=== PATIENT | female | born 1955 | race Hispanic/Latino ===

== ENCOUNTER 2022-04-17 18:30 | Emergency (ER) | payer OTHER ==
--- OUTSIDE RECORDS SUMMARY | 2022-04-17 18:34 | XMS REPORT | Continuity of Care Document ---
:1955 Author Organization [facility] t Address [address] [place] [address] Care Team Providers Name Role Phone Paulie GIBBONS, [facility] Primary Care Physician [phone] Mariama Jensen Attending Clinician Unavailable Problems Condition Condition Condition Status Onset Resolution Last Treating Co mments Source Name Details Category Date Date Treatment Clinician Date [id number] Mixed Problem Common hyperlipid [facility] emia [facility] [id number] Essential Problem Comm on (primary) [facility] hypertensi - [facility] [id number] Type 2 Problem Common diabetes [facility] mellitus - [facility] with [facility] without long-term current use of insulin Allergies, Adverse Reactions, Alerts This patient has no known allergies or adverse reactions. Social History Social Habit Start Date Stop Date Quantity Comments Source History of Tobacco Use Co mmon [facility] Sex Assigned At Com mon [facility] Smoking Status Start Date Stop Date Source Never Smoker Common [facility] Medications Ordered Filled Start Stop Current Ordering Indication Dosage Frequency Signature Comments Components Source Medication Medication Date Date Medication? Clinician (SIG) Name Name TAKE 1 2021-03 No TABLET 2-27 DAILY. 00:00: 00 Cepacol Cepacol No 1{lozen Cepacol Sore Throat Sore Throat 7-28 ge_as_n Sore 5.4 MG 5.4 MG 00:00: eeded} Throat 5.4 00 MG Lisinopril Lisinopril 2-0 No 1{table QD Lisinopril 40 MG 40 MG 10-24 t} 40 MG 00:00: 00 Cepacol Cepacol 2-0 No 1{lozen Cepacol Sore Throat Sore Throat 10-24 ge_as_n Sore 5.4 MG 5.4 MG 00:00: eeded} Throat 5.4 00 MG Lisinopril Lisinopril 2-0 No 1{table QD Lisinopril 40 MG 40 MG 10-24 t} 40 MG 00:00: 00 Loratadine Loratadine 2-0 2022- No 1{table QD Loratadine 10 MG 10 MG 10-24 t} 10 MG 00:00: 00:00 00 :00 Dose 2022-0 No Unknown 5-20 00:00: 00 Dose 2022-0 No Unknown 5-17 00:00: 00 Dose 2022-0 No Unknown 5-17 00:00: 00 amlodipine 2-0 No 1mg 5 mg tablet 5-16 00:00: 00 atorvastati 2-0 No 1mg n 40 mg 5-16 tablet 00:00: 00 lisinopril 2-0 No 1mg 20 mg 5-16 tablet 00:00: 00 glipizide 5 2-0 No 1mg mg tablet 5-16 00:00: 00 Dose 2022-0 No Unknown 5-16 00:00: 00 Dose 2022-0 No Unknown 5-16 00:00: 00 Dose 2022-0 No Unknown 5-16 00:00: 00 lisinopril 2-0 No 1mg 20 mg 1-13 tablet 00:00: 00 amlodipine 2-0 No 1mg 5 mg tablet 1-13 00:00: 00 atorvastati 2-0 No 1mg n 40 mg 1-13 tablet 00:00: 00 Dose 2022-0 No Unknown 1-13 00:00: 00 glipizide 5 2-0 No 1mg mg tablet 1-13 00:00: 00 atorvastati 1-1 No 1mg n 40 mg 0-14 tablet 00:00: 00 amlodipine 1-1 No 1mg 5 mg tablet 0-14 00:00: 00 lisinopril 2020-1 No 1mg 20 mg 0-14 tablet 00:00: 00 glipizide 5 2020-1 No 1mg mg tablet 0-14 00:00: 00 metformin 2020-1 No 2mg ER 500 mg 0-14 tablet,exte 00:00: nded 00 release 24 hr lisinopril 2020-0 No 1mg 20 mg 3-09 tablet 00:00: 00 amlodipine 2020-0 No 1mg 5 mg tablet 3-09 00:00: 00 atorvastati 2020-0 No 1mg n 40 mg 3-09 tablet 00:00: 00 Dose 2020-0 No Unknown 3-09 00:00: 00 glipizide 5 2020-0 No 1mg mg tablet 3- 00:00: 00 neomycin-po 2020-0 No 4mg/mL- lymyxin-hyd 2-02 unit/mL rocort 3.5 00:00: -% mg-10,000 00 unit/mL-1 % ear drops,susp atorvastati 2019-1 No 1mg n 40 mg 0-12 tablet 00:00: 00 lisinopril 2019-1 No 1mg 20 mg 0-12 tablet 00:00: 00 amlodipine 2019-1 No 1mg 5 mg tablet 0-12 00:00: 00 glipizide 5 2019-1 No 1mg mg tablet 0-12 00:00: 00 Dose 2019-1 No Unknown 0-12 00:00: 00 Tessalon 2019-1 No 12mg Perles 100 0-12 mg capsule 00:00: 00 atorvastati 2019-1 No 1mg n 40 mg 0-05 tablet 00:00: 00 metformin 2019-1 No 2mg ER 500 mg 0-05 tablet,exte 00:00: nded 00 release 24 hr glipizide 5 2019-1 No 1mg mg tablet 0-05 00:00: 00 amlodipine 2019-0 No 1mg 5 mg tablet 7-17 00:00: 00 lisinopril 2020-0 No 1mg 20 mg 7-17 tablet 00:00: 00 Premarin 2020-0 No 5mg/gra 0.625 7-13 m mg/gram 00:00: vaginal 00 cream amlodipine 2019-0 No 1mg 5 mg tablet 4-13 00:00: 00 loratadine 2020-0 No 1mg 10 mg 4-13 tablet 00:00: 00 amlodipine 2020-0 No 1mg 5 mg tablet 3-30 00:00: 00 Tessalon 2020-0 No 12mg Perles 100 3-30 mg capsule 00:00: 00 atorvastati 2020-0 No 1mg n 40 mg 3-17 tablet 00:00: 00 lisinopril 2020-0 No 1mg 20 mg 3-17 tablet 00:00: 00 metformin 2020-0 No 2mg ER 500 mg 3-17 tablet,exte 00:00: nded 00 release 24 hr glipizide 5 2020-0 No 1mg mg tablet 3-17 00:00: 00 glipizide 5 2019-0 No 1mg mg tablet 8-23 00:00: 00 atorvastati 2019-0 No 1mg n 40 mg 8-23 tablet 00:00: 00 metformin 2019-0 No 2mg ER 500 mg 8-23 tablet,exte 00:00: nded 00 release 24 hr atorvastati 2019-0 No 1mg n 40 mg 8-07 tablet 00:00: 00 glipizide 5 2019-0 No 1mg mg tablet 8-07 00:00: 00 metformin 2019-0 No 2mg ER 500 mg 8-07 tablet,exte 00:00: nded 00 release 24 hr metformin 2019-0 No 2mg ER 500 mg 5-06 tablet,exte 00:00: nded 00 release 24 hr glipizide 5 2019-0 No 1mg mg tablet 5-06 00:00: 00 metformin 2019-0 No 2mg ER 500 mg 4-03 tablet,exte 00:00: nded 00 release 24 hr clotrimazol 2019-0 No 1% e 1 % 2-11 topical 00:00: cream 00 metformin 2019-0 No 1mg ER 500 mg 2-11 tablet,exte 00:00: nded 00 release 24 hr metformin 2019-0 No 2mg ER 500 mg 2-11 tablet,exte 00:00: nded 00 release 24 hr fluconazole 2019-0 No 1mg 150 mg 2-11 tablet 00:00: 00 Keflex 500 2019-0 No 1mg mg capsule 2-11 00:00: 00 Gabapentin Gabapentin No 1{capsu QD Gabapentin 300 MG 300 MG le} 300 MG Atorvastati Atorvastati No 1{table QD Atorvastat n Calcium n Calcium t} in Calcium 40 MG 40 MG 40 MG amLODIPine amLODIPine No 1{table QD amLODIPine Besylate 5 Besylate 5 t} Besylate 5 MG MG MG glipiZIDE 5 glipiZIDE 5 No BID glipiZIDE MG MG 5 MG Metformin Metformin No 1{table BID Metformin HCl 1000 MG HCl 1000 MG t_with_ HCl 1000 meals} MG Gabapentin Gabapentin No 1{capsu QD Gabapentin 300 MG 300 MG le} 300 MG Metformin Metformin No 1{table BID Metformin HCl 1000 MG HCl 1000 MG t_with_ HCl 1000 meals} MG amLODIPine amLODIPine No 1{table QD amLODIPine Besylate 5 Besylate 5 t} Besylate 5 MG MG MG glipiZIDE 5 glipiZIDE 5 No BID glipiZIDE MG MG 5 MG Atorvastati Atorvastati No 1{table QD Atorvastat n Calcium n Calcium t} in Calcium 40 MG 40 MG 40 MG Immunizations Ordered Immunization Filled Immunization Date Status Commen ts Source Name Name Influenza, seasonal, 2020-01-09 Completed inj 00:00:00 pneumococcal 2020-01-09 Completed polysacchar 00:00:00 SHINGRIX VACCINE 2020-01-09 Completed 00:00:00 SHINGRIX VACCINE 2019-06-14 Completed 00:00:00 Influenza, seasonal, 2018-05-10 Completed inj 00:00:00 Vital Signs Vital Name Observation Time Observation Value Comments Source height 2021-10-24 10:40:00 65 [in_i] [facility] weight 2021-10-24 10:40:00 159 [lb_av] [facility] temperature 2021-10-24 10:40:00 97.9 [degF] [facility] bmi 2021-10-24 10:40:00 26.46 kg/m2 [facility] oximetry 2021-10-24 10:40:00 96 % [facility] respiratory rate 2021-10-24 10:40:00 17 /min Comm on [facility] blood pressure 2021-10-24 10:40:00 142 mm[Hg] [facility] - systolic [facility] blood pressure 2021-10-24 10:40:00 80 mm[Hg] [facility] - diastolic [facility] BP Systolic 2022-03-25 17:39:00 153 mm[Hg] BP Diastolic 2022-03-25 17:39:00 95 mm[Hg] Weight Measured 2022-03-25 17:39:00 158.40 pounds Height Measured 2022-03-25 17:39:00 65.00 inches Body Temperature 2022-03-25 17:39:00 98.00 degrees Heart Rate 2022-03-25 17:39:00 79.00 /min Respiratory Rate 2022-03-25 17:39:00 18.00 /min BP Systolic 2021-08-12 16:52:00 154 mm[Hg] BP Diastolic 2021-08-12 16:52:00 92 mm[Hg] Weight Measured 2021-08-12 16:52:00 156.40 pounds Height Measured 2021-08-12 16:52:00 65.00 inches Body Temperature 2021-08-12 16:52:00 97.90 degrees Heart Rate 2021-08-12 16:52:00 60.00 /min Respiratory Rate 2021-08-12 16:52:00 18.00 /min BP Systolic 2021-04-11 16:55:00 125 mm[Hg] BP Diastolic 2021-04-11 16:55:00 80 mm[Hg] Weight Measured 2021-04-11 16:55:00 158.20 pounds Height Measured 2021-04-11 16:55:00 65.00 inches Body Temperature 2021-04-11 16:55:00 98.60 degrees Heart Rate 2021-04-11 16:55:00 67.00 /min Respiratory Rate 2021-04-11 16:55:00 16.00 /min BP Systolic 2021-02-05 17:45:00 130 mm[Hg] BP Diastolic 2021-02-05 17:45:00 86 mm[Hg] Weight Measured 2021-02-05 17:45:00 157.60 pounds Height Measured 2021-02-05 17:45:00 65.00 inches Body Temperature 2021-02-05 17:45:00 98.00 degrees Heart Rate 2021-02-05 17:45:00 60.00 /min Respiratory Rate 2021-02-05 17:45:00 BP Systolic 2021-01-10 09:29:00 144 mm[Hg] BP Diastolic 2021-01-10 09:29:00 88 mm[Hg] Weight Measured 2021-01-10 09:29:00 158.80 pounds Height Measured 2021-01-10 09:29:00 65.00 inches Body Temperature 2021-01-10 09:29:00 98.20 degrees Heart Rate 2021-01-10 09:29:00 65.00 /min Respiratory Rate 2021-01-10 09:29:00 BP Systolic 2020-01-30 14:37:00 118 mm[Hg] BP Diastolic 2020-01-30 14:37:00 73 mm[Hg] Weight Measured 2020-01-30 14:37:00 149.80 pounds Height Measured 2020-01-30 14:37:00 65.00 inches Body Temperature 2020-01-30 14:37:00 98.50 degrees Heart Rate 2020-01-30 14:37:00 61.00 /min Respiratory Rate 2020-01-30 14:37:00 16.00 /min BP Systolic 2020-01-09 11:16:00 131 mm[Hg] BP Diastolic 2020-01-09 11:16:00 86 mm[Hg] Weight Measured 2020-01-09 11:16:00 153.20 pounds Height Measured 2020-01-09 11:16:00 65.00 inches Body Temperature 2020-01-09 11:16:00 98.90 degrees Heart Rate 2020-01-09 11:16:00 65.00 /min Respiratory Rate 2020-01-09 11:16:00 17.00 /min BP Systolic 2019-12-26 17:45:00 142 mm[Hg] BP Diastolic 2019-12-26 17:45:00 82 mm[Hg] Weight Measured 2019-12-26 17:45:00 159.00 pounds Height Measured 2019-12-26 17:45:00 65.00 inches Body Temperature 2019-12-26 17:45:00 97.10 degrees Heart Rate 2019-12-26 17:45:00 64.00 /min Respiratory Rate 2019-12-26 17:45:00 16.00 /min BP Systolic 2019-10-10 15:48:00 140 mm[Hg] BP Diastolic 2019-10-10 15:48:00 85 mm[Hg] Weight Measured 2019-10-10 15:48:00 160.00 pounds Height Measured 2019-10-10 15:48:00 65.00 inches Body Temperature 2019-10-10 15:48:00 98.70 degrees Heart Rate 2019-10-10 15:48:00 69.00 /min Respiratory Rate 2019-10-10 15:48:00 16.00 /min BP Systolic 2019-07-11 16:25:00 131 mm[Hg] BP Diastolic 2019-07-11 16:25:00 81 mm[Hg] Weight Measured 2019-07-11 16:25:00 165.20 pounds Height Measured 2019-07-11 16:25:00 65.00 inches Body Temperature 2019-07-11 16:25:00 97.80 degrees Heart Rate 2019-07-11 16:25:00 63.00 /min Respiratory Rate 2019-07-11 16:25:00 16.00 /min Procedures This patient has no known procedures. Plan of Care Planned Activity Planned Date Details Comments Source Goal Plan of Care Note [code = 20130-0] Goal Plan of Care Note [code = 14359-8] Goal Plan of Care Note [code = 52399-9] Goal Plan of Care Note [code = 51994-8] Goal Plan of Care Note [code = 53435-2] Goal Plan of Care Note [code = 30027-5] Goal Plan of Care Note [code = 08521-7] Goal Plan of Care Note [code = 51267-6] Goal Plan of Care Note [code = 68918-7] Goal Plan of Care Note [code = 88705-7] Goal Plan of Care Note [code = 58419-7] Goal Plan of Care Note [code = 38823-2] Goal Plan of Care Note [code = 53698-4] Goal Plan of Care Note [code = 24886-5] Goal Plan of Care Note [code = 34330-6] Goal Plan of Care Note [code = 39366-6] Encounters Start End Encounter Admission Attending Care Care Encounter Source Date/Time Date/Time Type Type Clinicians Facility Department ID 2021-11-20 Outpatient Jensen, STLBLC STLMLC [id number] Common 09:43:01 Mariama [facility] 2021-10-22 Outpatient Jensen, STLBLC STLMLC [id number] Common 08:59:03 Mariama [facility] 2021 Outpatient Jensen, STLBLC STLMLC [id number] Common 14:59:02 Mariama [facility] 2021-10-03 Outpatient Jensen, STLBLC STLMLC [id number] Common 11:41:02 Mariama [facility] 2021-08-06 Outpatient Jensen, STLBLC STLMLC [id number] Common 14:02:02 Mariama [facility] 2021-08-01 Outpatient Jensen, STLBLC STLMLC [id number] Common 14:46:01 Mariama [facility] 2022-04-07 2022-04-07 (TEL) STLMLC STLMLC [id number] Co mmon 00:00:00 00:00:00 [facility] 2022-03-27 2022-03-27 Outpatient SFA SFA [id number] Iggy 08:35:05 08:35:05 1229 F Matthew 2022-03-25 2022-03-25 Outpatient SFA SFA [id number] Iggy 17:11:56 17:11:56 1227 Vasyl Castro 2022-03-25 2022-03-25 Outpatient [id number] [id number] 00:00:00 00:00:00 Visit [id number] 2021-10-24 2021-10-24 OFFICE STLMLC STLMLC [id number] Co mmon 00:00:00 00:00:00 VISIT [facility] PT LEVEL 4 [facility] Results Test Description Test Time Test Comments Results Result Comments Source COMPREHENSIVE METABOLIC PANEL 2022-03-28 05:35:19 Test Item Value Reference Range Interpretation Comme nts GLUCOSE (test code = 2216) 221 MG/DL 70-99 H BUN (test code = 2207) 15 MG/DL 8-23 CREATININE (test code = 0.73 MG/DL 0.60-1.30 2213) eGFR (2020 CKD-EPI) (test 91 ML/MIN/1.73 >60 code = 75840) CALC BUN/CREAT (test code = 21 RATIO 6-28 2234) SODIUM (test code = 2230) 140 MEQ/L 133-146 POTASSIUM (test code = 2227) 4.1 MEQ/L 3.5-5.4 CHLORIDE (test code = 2214) 103 MEQ/L 95-107 CARBON DIOXIDE (test code = 26 MEQ/L -2205) CALCIUM (test code = 2208) 9.1 MG/DL 8.5-10.5 PROTEIN, TOTAL (test code = 6.8 G/DL 6.1-8.3 2228) ALBUMIN (test code = 2200) 4.3 G/DL 3.5-5.2 CALC GLOBULIN (test code = 2.5 G/DL 1.9-3.7 2239) CALC A/G RATIO (test code = 1.7 RATIO 1.0-2.6 2233) BILIRUBIN, TOTAL (test code 0.5 MG/DL See_Comment [Automated message] The = 2206) system which ge nerated this result transmit gloria reference range: <=1.2. T he reference range was not u sed to interpret this result as normal/abnormal . ALKALINE PHOSPHATASE (test 157 U/L 40-140 H code = 2204) AST (test code = 2217) 18 U/L 9-40 ALT (test code = 9) 20 U/L 5-40 ALBUMIN/CREATININE RATIO, URINE, [id number] 05:30:24 Test Item Value Reference Range Interpretation Comments CREATININE, URINE, 83.5 MG/DL NOT ESTAB CONC. (test code = 2072) ALBUMIN, URINE, 1.1 MG/DL NOT ESTAB RANDOM (test code = 69524) CALC 13 MG/G <30 Note: Albumin/ Creatinine ALBUMIN/CREAT, RND ratio ref erence interval (test code = [place] [address]) guidelines. UNL ESS OTHERWISE INDIC ATED, ALL TESTING PERFORM ED [facility], [facility]. [address] [place] [address] LABORATORY DIRE CTOR: Kyaw OBREGON. TASHAIA NUMBER [id number] CAP ACCREDITATION N O. [id number] HEMOGLOBIN [id number] 03:43:06 Test Item Value Reference Range Interpretation Comments HEMOGLOBIN A1c (test 8.6 % 4.2-5.6 H AMERIC AN DIABETES code = 27851) ASSOCIATION IDELINES FOR HGB A1C: PREDIABETES/INC REASED RISK . . . . . . . 5.7 -6.4% DIAGNOSIS OF DI ABETES . . . . . . . . . >=6 .5% WITH CONFIRMATION OR APPROPRIATE SYMPTOMS NOTE: ASSAY MAY BE AFFECTED BY HEMOGLOBINOPATH IES (SICKLE CELL ANEMIA, S- C DISEASE, OTHERS) OR GENEVIEVE FICIALLY LOWERED BY DECR EASED RED CELL SURVIVAL ( HEMOLYTIC ANEMIAS, BLOOD LOSS, ETC.). CONSIDER ALTERN ATE TESTING OR LABORATORY C ONSULTATION. COMPREHENSIVE METABOLIC [id number] 00:00:00 Test Item Value Reference Range Interpretation Comments GLUCOSE (test code = 2217) 221 MG/DL BUN (test code = 2208) 15 MG/DL CREATININE (test code = 2214) 0.73 MG/DL eGFR (2020 CKD-EPI) (test code 91 ML/MIN/1.73 = 59830) CALC BUN/CREAT (test code = 21 RATIO 2235) SODIUM (test code = 2231) 140 MEQ/L POTASSIUM (test code = 2228) 4.1 MEQ/L CHLORIDE (test code = 2215) 103 MEQ/L CARBON DIOXIDE (test code = 26 MEQ/L 2205) CALCIUM (test code = 2209) 9.1 MG/DL PROTEIN, TOTAL (test code = 6.8 G/DL 2228) ALBUMIN (test code = 2201) 4.3 G/DL CALC GLOBULIN (test code = 2.5 G/DL 0) CALC A/G RATIO (test code = 1.7 RATIO 2234) BILIRUBIN, TOTAL (test code = 0.5 MG/DL 2206) ALKALINE PHOSPHATASE (test 157 U/L code = 2204) AST (test code = 2218) 18 U/L ALT (test code = 2219) 20 U/L ALBUMIN/CREATININE RATIO, RANDOM [id number] 00:00:00 Test Item Value Reference Range Interpretation Comments CREATININE, URINE, CONC. (test 83.5 MG/DL code = 2072) ALBUMIN, URINE, RANDOM (test code 1.1 MG/DL = 87701) CALC ALBUMIN/CREAT, RND (test code 13 MG/G = 05512) ALBUMIN/CREATININE RATIO, RANDOM [id number] 00:00:00 Test Item Value Reference Range Interpretation Comments CREATININE, URINE, CONC. (test 83.5 MG/DL code = 2072) ALBUMIN, URINE, RANDOM (test code 1.1 MG/DL = 55308) CALC ALBUMIN/CREAT, RND (test code 13 MG/G = 00278) HEMOGLOBIN [id number] 00:00:00 Test Item Value Reference Range Interpretation Comments HEMOGLOBIN A1c (test code = 75135) 8.6 % HEMOGLOBIN [id number] 00:00:00 Test Item Value Reference Range Interpretation Comments HEMOGLOBIN A1c (test code = 97610) 8.6 % HEMOGLOBIN [id number] 00:00:00 Test Item Value Reference Range Interpretation Comments HEMOGLOBIN A1c (test code = 39847) 8.6 % COMPREHENSIVE METABOLIC [id number] 00:00:00 Test Item Value Reference Range Interpretation Comments GLUCOSE (test code = 2217) 221 MG/DL BUN (test code = 2208) 15 MG/DL CREATININE (test code = 2214) 0.73 MG/DL eGFR (2020 CKD-EPI) (test code 91 ML/MIN/1.73 = 82873) CALC BUN/CREAT (test code = 21 RATIO 2235) SODIUM (test code = 2231) 140 MEQ/L POTASSIUM (test code = 2228) 4.1 MEQ/L CHLORIDE (test code = 2215) 103 MEQ/L CARBON DIOXIDE (test code = 26 MEQ/L 2205) CALCIUM (test code = 2209) 9.1 MG/DL PROTEIN, TOTAL (test code = 6.8 G/DL 2228) ALBUMIN (test code = 220) 4.3 G/DL CALC GLOBULIN (test code = 2.5 G/DL 2239) CALC A/G RATIO (test code = 1.7 RATIO 2234) BILIRUBIN, TOTAL (test code = 0.5 MG/DL 2206) ALKALINE PHOSPHATASE (test 157 U/L code = 2204) AST (test code = 2218) 18 U/L ALT (test code = 2219) 20 U/L LIPID [id number] 06:59:39 Test Item Value Reference Range Interpretation Comments CHOLESTEROL (test 145 MG/DL <200 code = 2210) TRIGLYCERIDES (test 236 MG/DL <150 H code = 2232) HDL CHOLESTEROL (test 40 MG/DL >39 code = 2220) CALC LDL CHOL (test 72 MG/DL <100 NOTE: C ALCULATED LDL code = 2237) IS BASED ON AMAIRANI-PELAYO METHOD WHICHINCLUDES ADJUSTABLE TRIGLYCERIDE:VL DL CHOLESTEROL RAT IO.THIS FACTOR VARIES B Y MEASURED TRIGLY CERIDE AND NON-HDLCHOL ESTEROL CONCENTRATIONS WITH INCREASED CALCU LATED LDL SEENIN HIGH ER TRIGLYCERIDE OR LOWER NON-HDL SPECIME NS. FOR MOREINFORMATION , SEE CLIENT ANNOUNCE MENT AT [email or web address] RISK RATIO LDL/HDL 1.80 RATIO <3.22 (test code = 2238) COMPREHENSIVE METABOLIC [id number] 06:59:39 Test Item Value Reference Range Interpretation Comments GLUCOSE (test code = 195 MG/DL 70-99 H 2216) BUN (test code = 13 MG/DL 8-23 2207) CREATININE (test 0.77 MG/DL 0.60-1.30 code = 2214) eGFR (2020 CKD-EPI) 86 >60 (test code = 02854) ML/MIN/1.73 CALC BUN/CREAT (test 17 RATIO 6-28 code = 2235) SODIUM (test code = 142 MEQ/L 458-956 0342) POTASSIUM (test code 4.0 MEQ/L 3.5-5.4 = 2227) CHLORIDE (test code 103 MEQ/L 95-107 = 2214) CARBON DIOXIDE (test 27 MEQ/L 19-31 code = 220) CALCIUM (test code = 9.7 MG/DL 8.5-10.5 2208) PROTEIN, TOTAL (test 7.6 G/DL 6.1-8.3 code = 222) ALBUMIN (test code = 4.9 G/DL 3.5-5.2 2200) CALC GLOBULIN (test 2.7 G/DL 1.9-3.7 code = 2240) CALC A/G RATIO (test 1.8 RATIO 1.0-2.6 code = 2234) BILIRUBIN, TOTAL 0.5 MG/DL See_Comment [Automated message] (test code = 2207) The syste m which generated this result transmitted ref erence range: <=1.2. T he reference range was not used to int erpret this result as normal/abnormal . ALKALINE PHOSPHATASE 140 U/L 40-140 (test code = 2203) AST (test code = 18 U/L 9-40 2217) ALT (test code = 14 U/L 5-40 UNLESS OTH ERWISE 2218) INDICATED, ALL TESTING PERFORM ED [facility], [id number] [place] [address] DIRECTOR: RODNEY JONES M.D. CLIA NUMBER [id number] CAP ACCREDITATION N O. [id number] HEMOGLOBIN [id number] 03:50:56 Test Item Value Reference Range Interpretation Comments HEMOGLOBIN A1c (test 6.9 % 4.2-5.6 H AMERIC AN DIABETES code = 65083) ASSOCIATION IDELINES FOR HGB A1C: PREDIABETES/INC REASED RISK . . . . . . . 5.7 -6.4% DIAGNOSIS OF DI ABETES . . . . . . . . . >=6 .5% WITH CONFIRMATION OR APPROPRIATE SYMPTOMS NOTE: ASSAY MAY BE AFFECTED BY HEMOGLOBINOPATH IES (SICKLE CELL ANEMIA, S- C DISEASE, OTHERS) OR GENEVIEVE FICIALLY LOWERED BY DECR EASED RED CELL SURVIVAL ( HEMOLYTIC ANEMIAS, BLOOD LOSS, ETC.). CONSIDER ALTERN ATE TESTING OR LABORATORY C ONSULTATION. LIPID [id number] 00:00:00 Test Item Value Reference Range Interpretation Comments CHOLESTEROL (test code = 2210) 145 MG/DL TRIGLYCERIDES (test code = 2232) 236 MG/DL HDL CHOLESTEROL (test code = 2220) 40 MG/DL CALC LDL CHOL (test code = 2237) 72 MG/DL RISK RATIO LDL/HDL (test code = 1.80 RATIO 8) COMPREHENSIVE METABOLIC [id number] 00:00:00 Test Item Value Reference Range Interpretation Comments GLUCOSE (test code = 2217) 195 MG/DL BUN (test code = 2208) 13 MG/DL CREATININE (test code = 2214) 0.77 MG/DL eGFR (2020 CKD-EPI) (test code 86 ML/MIN/1.73 = 44237) CALC BUN/CREAT (test code = 17 RATIO 2235) SODIUM (test code = 2231) 142 MEQ/L POTASSIUM (test code = 2228) 4.0 MEQ/L CHLORIDE (test code = 2215) 103 MEQ/L CARBON DIOXIDE (test code = 27 MEQ/L 2206) CALCIUM (test code = 2209) 9.7 MG/DL PROTEIN, TOTAL (test code = 7.6 G/DL 2228) ALBUMIN (test code = 2201) 4.9 G/DL CALC GLOBULIN (test code = 2.7 G/DL 2240) CALC A/G RATIO (test code = 1.8 RATIO 2234) BILIRUBIN, TOTAL (test code = 0.5 MG/DL 2206) ALKALINE PHOSPHATASE (test 140 U/L code = 2204) AST (test code = 2218) 18 U/L ALT (test code = 2219) 14 U/L COMPREHENSIVE METABOLIC [id number] 00:00:00 Test Item Value Reference Range Interpretation Comments GLUCOSE (test code = 2217) 195 MG/DL BUN (test code = 2208) 13 MG/DL CREATININE (test code = 2214) 0.77 MG/DL eGFR (2020 CKD-EPI) (test code 86 ML/MIN/1.73 = 12278) CALC BUN/CREAT (test code = 17 RATIO 2235) SODIUM (test code = 2231) 142 MEQ/L POTASSIUM (test code = 2228) 4.0 MEQ/L CHLORIDE (test code = 2215) 103 MEQ/L CARBON DIOXIDE (test code = 27 MEQ/L 2206) CALCIUM (test code = 2209) 9.7 MG/DL PROTEIN, TOTAL (test code = 7.6 G/DL 2228) ALBUMIN (test code = 2201) 4.9 G/DL CALC GLOBULIN (test code = 2.7 G/DL 2240) CALC A/G RATIO (test code = 1.8 RATIO 2234) BILIRUBIN, TOTAL (test code = 0.5 MG/DL 2206) ALKALINE PHOSPHATASE (test 140 U/L code = 2204) AST (test code = 2218) 18 U/L ALT (test code = 2219) 14 U/L HEMOGLOBIN [id number] 00:00:00 Test Item Value Reference Range Interpretation Comments HEMOGLOBIN A1c (test code = 22269) 6.9 % HEMOGLOBIN [id number] 00:00:00 Test Item Value Reference Range Interpretation Comments HEMOGLOBIN A1c (test code = 85268) 6.9 % HEMOGLOBIN [id number] 00:00:00 Test Item Value Reference Range Interpretation Comments HEMOGLOBIN A1c (test code = 53091) 6.9 % LIPID [id number] 00:00:00 Test Item Value Reference Range Interpretation Comments CHOLESTEROL (test code = 2210) 145 MG/DL TRIGLYCERIDES (test code = 2232) 236 MG/DL HDL CHOLESTEROL (test code = 2220) 40 MG/DL CALC LDL CHOL (test code = 2237) 72 MG/DL RISK RATIO LDL/HDL (test code = 1.80 RATIO 2238) HEMOGLOBIN [id number] 05:06:18 Test Item Value Reference Range Interpretation Comments HEMOGLOBIN A1c (test 7.0 % 4.2-5.6 H AMERIC AN DIABETES code = 48770) ASSOCIATION IDELIN[employer] FOR HGB A1C: PREDIABETES/INC REASED RISK . . . . . . . 5.7 -6.4% DIAGNOSIS OF DI ABETES . . . . . . . . . >=6 .5% WITH CONFIRMATION OR APPROPRIATE SYMPTOMS NOTE: ASSAY MAY BE AFFECTED BY HEMOGLOBINOPATH IES (SICKLE CELL ANEMIA, S- C DISEASE, OTHERS) OR GENEVIEVE FICIALLY LOWERED BY DECR EASED RED CELL SURVIVAL ( HEMOLYTIC ANEMIAS, BLOOD LOSS, ETC.). CONSIDER ALTERN ATE TESTING OR LABORATORY C ONSULTATION. LIPID [id number] 03:59:27 Test Item Value Reference Range Interpretation Comments CHOLESTEROL (test 117 MG/DL <200 code = 2210) TRIGLYCERIDES (test 190 MG/DL <150 H code = 2232) HDL CHOLESTEROL (test 35 MG/DL >39 L code = 2220) CALC LDL CHOL (test 56 MG/DL <100 NOTE: C ALCULATED LDL code = 2237) IS BASED ON AMAIRANI-PELAYO METHOD WHICHINCLUDES ADJUSTABLE TRIGLYCERIDE:VL DL CHOLESTEROL RAT IO.THIS FACTOR VARIES B Y MEASURED TRIGLY CERIDE AND NON-HDLCHOL ESTEROL CONCENTRATIONS WITH INCREASED CALCU LATED LDL SEENIN HIGH ER TRIGLYCERIDE OR LOWER NON-HDL SPECIME NS. FOR MOREINFORMATION , SEE CLIENT ANNOUNCE MENT AT [email or web address] RISK RATIO LDL/HDL 1.60 RATIO <3.22 UNLESS O THERWISE (test code = 2238) INDICATED , ALL TESTING PERFORMED [facility], [facility]. [address] [place] [address] [facility] DIRECTOR: RODNEY JONES M.D. IA NUMBER [id number] CAP ACCREDITATION N O. [id number] HEMOGLOBIN [id number] 00:00:00 Test Item Value Reference Range Interpretation Comments HEMOGLOBIN A1c (test code = 45435) 7.0 % HEMOGLOBIN [id number] 00:00:00 Test Item Value Reference Range Interpretation Comments HEMOGLOBIN A1c (test code = 45450) 7.0 % HEMOGLOBIN [id number] 00:00:00 Test Item Value Reference Range Interpretation Comments HEMOGLOBIN A1c (test code = 22329) 7.0 % LIPID [id number] 00:00:00 Test Item Value Reference Range Interpretation Comments CHOLESTEROL (test code = 2210) 117 MG/DL TRIGLYCERIDES (test code = 2232) 190 MG/DL HDL CHOLESTEROL (test code = 2220) 35 MG/DL CALC LDL CHOL (test code = 2237) 56 MG/DL RISK RATIO LDL/HDL (test code = 1.60 RATIO 2238) LIPID [id number] 00:00:00 Test Item Value Reference Range Interpretation Comments CHOLESTEROL (test code = 2210) 117 MG/DL TRIGLYCERIDES (test code = 2232) 190 MG/DL HDL CHOLESTEROL (test code = 2220) 35 MG/DL CALC LDL CHOL (test code = 2237) 56 MG/DL RISK RATIO LDL/HDL (test code = 1.60 RATIO 2238) LIPID [id number] 00:00:00 Test Item Value Reference Range Interpretation Comments CHOLESTEROL (test code = 2210) 165 MG/DL TRIGLYCERIDES (test code = 2232) 181 MG/DL HDL CHOLESTEROL (test code = 2220) 43 MG/DL CALC LDL CHOL (test code = 2237) 94 MG/DL RISK RATIO LDL/HDL (test code = 2.19 RATIO 2238) COMPREHENSIVE METABOLIC [id number] 00:00:00 Test Item Value Reference Range Interpretation Comments GLUCOSE (test code = 2217) 169 MG/DL BUN (test code = 2208) 14 MG/DL CREATININE (test code = 2214) 0.79 MG/DL eGFR AMER. (test code 92 ML/MIN/1.73 = 85393) eGFR NON- AMER. (test 79 ML/MIN/1.73 code = 16746) CALC BUN/CREAT (test code = 18 RATIO 2235) SODIUM (test code = 2231) 143 MEQ/L POTASSIUM (test code = 2228) 4.0 MEQ/L CHLORIDE (test code = 2215) 104 MEQ/L CARBON DIOXIDE (test code = 28 MEQ/L 2206) CALCIUM (test code = 2209) 9.9 MG/DL PROTEIN, TOTAL (test code = 7.3 G/DL 2228) ALBUMIN (test code = 2201) 4.6 G/DL CALC GLOBULIN (test code = 2.7 G/DL 2240) CALC A/G RATIO (test code = 1.7 RATIO 2234) BILIRUBIN, TOTAL (test code = 1.1 MG/DL 2206) ALKALINE PHOSPHATASE (test 147 U/L code = 2204) AST (test code = 2218) 22 U/L ALT (test code = 2219) 19 U/L COMPREHENSIVE METABOLIC [id number] 00:00:00 Test Item Value Reference Range Interpretation Comments GLUCOSE (test code = 2217) 169 MG/DL BUN (test code = 2208) 14 MG/DL CREATININE (test code = 2214) 0.79 MG/DL eGFR AMER. (test code 92 ML/MIN/1.73 = 70961) eGFR NON- AMER. (test 79 ML/MIN/1.73 code = 01080) CALC BUN/CREAT (test code = 18 RATIO 2235) SODIUM (test code = 2231) 143 MEQ/L POTASSIUM (test code = 2228) 4.0 MEQ/L CHLORIDE (test code = 2215) 104 MEQ/L CARBON DIOXIDE (test code = 28 MEQ/L 2206) CALCIUM (test code = 2209) 9.9 MG/DL PROTEIN, TOTAL (test code = 7.3 G/DL 222) ALBUMIN (test code = 2201) 4.6 G/DL CALC GLOBULIN (test code = 2.7 G/DL 2240) CALC A/G RATIO (test code = 1.7 RATIO 2234) BILIRUBIN, TOTAL (test code = 1.1 MG/DL 2207) ALKALINE PHOSPHATASE (test 147 U/L code = 2204) AST (test code = 2218) 22 U/L ALT (test code = 2219) 19 U/L MICROALBUMIN/CREATININE, RANDOM AND [id number] 00:00:00 Test Item Value Reference Range Interpretation Comments CREATININE, URINE, CONC. (test 125.6 MG/DL code = 2072) ALBUMIN, URINE, RANDOM (test code 2.1 MG/DL = 73830) CALC ALBUMIN/CREAT, RND (test 17 MG/G code = 96543) MICROALBUMIN/CREATININE, RANDOM AND [id number] 00:00:00 Test Item Value Reference Range Interpretation Comments CREATININE, URINE, CONC. (test 125.6 MG/DL code = 2072) ALBUMIN, URINE, RANDOM (test code 2.1 MG/DL = 89349) CALC ALBUMIN/CREAT, RND (test 17 MG/G code = 92424) HEMOGLOBIN [id number] 00:00:00 Test Item Value Reference Range Interpretation Comments HEMOGLOBIN A1c (test code = 86350) 7.2 % HEMOGLOBIN [id number] 00:00:00 Test Item Value Reference Range Interpretation Comments HEMOGLOBIN A1c (test code = 39119) 7.2 % HEMOGLOBIN [id number] 00:00:00 Test Item Value Reference Range Interpretation Comments HEMOGLOBIN A1c (test code = 04617) 7.2 % LIPID [id number] 00:00:00 Test Item Value Reference Range Interpretation Comments CHOLESTEROL (test code = 2210) 165 MG/DL TRIGLYCERIDES (test code = 2232) 181 MG/DL HDL CHOLESTEROL (test code = 2220) 43 MG/DL CALC LDL CHOL (test code = 2237) 94 MG/DL RISK RATIO LDL/HDL (test code = 2.19 RATIO 2238) HPV HIGH RISK WITH GENOTYPE, [id number] 00:00:00 Test Item Value Reference Range Interpretation Comments HPV HIGH RISK INTERP (test code = NEGATIVE 43925) HPV 16 (test code = 58507) NEGATIVE HPV 18 (test code = 45805) NEGATIVE HPV, HR, OTHER GENOTYPES (test code NEGATIVE = 61352) PAP TEST, THINPREP, [id number] 00:00:00 Test Item Value Reference Range Interpretation Comments SOURCE: (test code = Cervical/Endocervical 8001) SLIDES: (test code = 1 8011) LMP: (test code = 8021) 2010 SPECIMEN ADEQUACY: (test (NOTE) code = 84741) INTERPRETATION: (test NILM/NO EPITH. code = 29651) ABNORMALITY;SEE BELOW PAD MAKING MACHINE OPERATOR: (test Yane code = 8101) LaryCT(ASCP)IAC LOCATION: (test code = (NOTE) 77511) CPT: (test code = 8140) (NOTE) PAP TEST, THINPREP, [id number] 00:00:00 Test Item Value Reference Range Interpretation Comments SOURCE: (test code = Cervical/Endocervical 8001) SLIDES: (test code = 1 8011) LMP: (test code = 8021) 2010 SPECIMEN ADEQUACY: (test (NOTE) code = 45102) INTERPRETATION: (test NILM/NO EPITH. code = 93528) ABNORMALITY;SEE BELOW PAD MAKING MACHINE OPERATOR: (test Yane code = 8101) PATTI Barth(ASCP)IAC LOCATION: (test code = (NOTE) 06883) CPT: (test code = 8140) (NOTE) HPV HIGH RISK WITH GENOTYPE, [id number] 00:00:00 Test Item Value Reference Range Interpretation Comments HPV HIGH RISK INTERP (test code = NEGATIVE 70697) HPV 16 (test code = 93071) NEGATIVE HPV 18 (test code = 46679) NEGATIVE HPV, HR, OTHER GENOTYPES (test code NEGATIVE = 67860) MICROALBUMIN/CREATININE, RANDOM AND [id number] 00:00:00 Test Item Value Reference Range Interpretation Comments CREATININE, URINE, CONC. (test 23.5 MG/DL code = 2072) ALBUMIN, URINE, RANDOM (test code 0.2 MG/DL = 11481) CALC ALBUMIN/CREAT, RND (test code 9 MG/G = 73977) HEMOGLOBIN [id number] 00:00:00 Test Item Value Reference Range Interpretation Comments HEMOGLOBIN A1c (test code = 85870) 7.1 % HEMOGLOBIN [id number] 00:00:00 Test Item Value Reference Range Interpretation Comments HEMOGLOBIN A1c (test code = 10284) 7.1 % HEMOGLOBIN [id number] 00:00:00 Test Item Value Reference Range Interpretation Comments HEMOGLOBIN A1c (test code = 06784) 7.1 % MICROALBUMIN/CREATININE, RANDOM AND [id number] 00:00:00 Test Item Value Reference Range Interpretation Comments CREATININE, URINE, CONC. (test 23.5 MG/DL code = 2072) ALBUMIN, URINE, RANDOM (test code 0.2 MG/DL = 11415) CALC ALBUMIN/CREAT, RND (test code 9 MG/G = 04234) SARS-CoV-2 (COVID-19) by RT-PCR (HIGH RISK)2019-12-29 00:00:00 Test Item Value Reference Range Interpretation Comments SARS-CoV-2 INTERPRETATION Positive (test code = 11425) SOURCE (test code = 77019) Nasal_Swab_in_VTM__ UTM NOTE: [ADDED]2019 00:00:00 Test Item Value Reference Range Interpretation Comments NOTE: (test code = 998) (NOTE) HEMOGLOBIN A1c [ADDED]2019-10-14 00:00:00 Test Item Value Reference Range Interpretation Comments HEMOGLOBIN A1c (test code = 64801) 6.8 % HEMOGLOBIN A1c [ADDED]2019-10-14 00:00:00 Test Item Value Reference Range Interpretation Comments HEMOGLOBIN A1c (test code = 32522) 6.8 % HEMOGLOBIN A1c [ADDED]2019-10-14 00:00:00 Test Item Value Reference Range Interpretation Comments HEMOGLOBIN A1c (test code = 15328) 6.8 % LIPID PANEL [ADDED]2019-06-15 00:00:00 Test Item Value Reference Range Interpretation Comments CHOLESTEROL (test code = 2210) 154 MG/DL TRIGLYCERIDES (test code = 2232) 271 MG/DL HDL CHOLESTEROL (test code = 2220) 40 MG/DL CALC LDL CHOL (test code = 2237) 78 MG/DL RISK RATIO LDL/HDL (test code = 1.95 RATIO 2238) COMPREHENSIVE METABOLIC PANEL [ADDED]2019-06-15 00:00:00 Test Item Value Reference Range Interpretation Comments GLUCOSE (test code = 2217) 163 MG/DL BUN (test code = 2208) 14 MG/DL CREATININE (test code = 2214) 0.66 MG/DL eGFR AMER. (test code 110 ML/MIN/1.73 = 82108) eGFR NON- AMER. (test 95 ML/MIN/1.73 code = 76038) CALC BUN/CREAT (test code = 21 RATIO 2235) SODIUM (test code = 2231) 143 MEQ/L POTASSIUM (test code = 2228) 4.2 MEQ/L CHLORIDE (test code = 2215) 103 MEQ/L CARBON DIOXIDE (test code = 26 MEQ/L 2206) CALCIUM (test code = 2209) 10.1 MG/DL PROTEIN, TOTAL (test code = 7.6 G/DL 2228) ALBUMIN (test code = 2201) 4.9 G/DL CALC GLOBULIN (test code = 2.7 G/DL 2240) CALC A/G RATIO (test code = 1.8 RATIO 2234) BILIRUBIN, TOTAL (test code = 0.5 MG/DL 2206) ALKALINE PHOSPHATASE (test 142 U/L code = 220) AST (test code = 2218) 23 U/L ALT (test code = 2219) 21 U/L COMPREHENSIVE METABOLIC PANEL [ADDED]2019-06-15 00:00:00 Test Item Value Reference Range Interpretation Comments GLUCOSE (test code = 2217) 163 MG/DL BUN (test code = 2208) 14 MG/DL CREATININE (test code = 2214) 0.66 MG/DL eGFR AMER. (test code 110 ML/MIN/1.73 = 08889) eGFR NON- AMER. (test 95 ML/MIN/1.73 code = 88971) CALC BUN/CREAT (test code = 21 RATIO 2235) SODIUM (test code = 2231) 143 MEQ/L POTASSIUM (test code = 2228) 4.2 MEQ/L CHLORIDE (test code = 2215) 103 MEQ/L CARBON DIOXIDE (test code = 26 MEQ/L 2206) CALCIUM (test code = 2209) 10.1 MG/DL PROTEIN, TOTAL (test code = 7.6 G/DL 9) ALBUMIN (test code = 2201) 4.9 G/DL CALC GLOBULIN (test code = 2.7 G/DL 2240) CALC A/G RATIO (test code = 1.8 RATIO 2234) BILIRUBIN, TOTAL (test code = 0.5 MG/DL 2206) ALKALINE PHOSPHATASE (test 142 U/L code = 2204) AST (test code = 2218) 23 U/L ALT (test code = 2219) 21 U/L VAGINAL PATHOGENS DNA PANEL [ADDED]2019-06-15 00:00:00 Test Item Value Reference Range Interpretation Comments YUMIKO SPECIES (test code = ) NEGATIVE G. VAGINALIS (test code = 54763) NEGATIVE T. VAGINALIS (test code = 36397) NEGATIVE VAGINAL PATHOGENS DNA PANEL [ADDED]2019-06-15 00:00:00 Test Item Value Reference Range Interpretation Comments YUMIKO SPECIES (test code = ) NEGATIVE G. VAGINALIS (test code = 76627) NEGATIVE T. VAGINALIS (test code = 39427) NEGATIVE HEMOGLOBIN A1c [ADDED]2019-06-15 00:00:00 Test Item Value Reference Range Interpretation Comments HEMOGLOBIN A1c (test code = 92513) 6.7 % HEMOGLOBIN A1c [ADDED]2019-06-15 00:00:00 Test Item Value Reference Range Interpretation Comments HEMOGLOBIN A1c (test code = 65842) 6.7 % HEMOGLOBIN A1c [ADDED]2019-06-15 00:00:00 Test Item Value Reference Range Interpretation Comments HEMOGLOBIN A1c (test code = 67050) 6.7 % LIPID PANEL [ADDED]2019-06-15 00:00:00 Test Item Value Reference Range Interpretation Comments CHOLESTEROL (test code = 2210) 154 MG/DL TRIGLYCERIDES (test code = 2232) 271 MG/DL HDL CHOLESTEROL (test code = 2220) 40 MG/DL CALC LDL CHOL (test code = 2237) 78 MG/DL RISK RATIO LDL/HDL (test code = 1.95 RATIO 2238) MICROALBUMIN/CREATININE, RANDOM AND [id number] 00:00:00 Test Item Value Reference Range Interpretation Comments CREATININE, URINE, CONC. (test 36.6 MG/DL code = 2072) ALBUMIN, URINE, RANDOM (test code 0.2 MG/DL = 69471) CALC ALBUMIN/CREAT, RND (test code 5 MG/G = 44016) HEMOGLOBIN [id number] 00:00:00 Test Item Value Reference Range Interpretation Comments HEMOGLOBIN A1c (test code = 98272) 7.0 % HEMOGLOBIN [id number] 00:00:00 Test Item Value Reference Range Interpretation Comments HEMOGLOBIN A1c (test code = 60902) 7.0 % HEMOGLOBIN [id number] 00:00:00 Test Item Value Reference Range Interpretation Comments HEMOGLOBIN A1c (test code = 07077) 7.0 % MICROALBUMIN/CREATININE, RANDOM AND [id number] 00:00:00 Test Item Value Reference Range Interpretation Comments CREATININE, URINE, CONC. (test 36.6 MG/DL code = 2072) ALBUMIN, URINE, RANDOM (test code 0.2 MG/DL = 90462) CALC ALBUMIN/CREAT, RND (test code 5 MG/G = 60599) PAP TEST, THINPREP, [id number] 00:00:00 Test Item Value Reference Range Interpretation Comments SOURCE: (test code = Cervical/Endocervical 8001) SLIDES: (test code = 2 8011) LMP: (test code = 8021) SEE NOTE SPECIMEN ADEQUACY: (NOTE) (test code = 44251) INTERPRETATION: (test UNSATISFACTORY; SEE code = 52407) BELOW OTHER COMMENTS: (test (NOTE) code = 8081) PAD MAKING MACHINE OPERATOR: (test Ed code = 8101) PATTI Mathew(ASCP)IAC QC TECHNOLOGIST: (test PATTI Perdomo(ASCP) code = 8111) LOCATION: (test code = (NOTE) 88401) CPT: (test code = 8140) (NOTE) PAP TEST, THINPREP, [id number] 00:00:00 Test Item Value Reference Range Interpretation Comments SOURCE: (test code = Cervical/Endocervical 8001) SLIDES: (test code = 2 8011) LMP: (test code = 8021) SEE NOTE SPECIMEN ADEQUACY: (NOTE) (test code = 15752) INTERPRETATION: (test UNSATISFACTORY; SEE code = 22510) BELOW OTHER COMMENTS: (test (NOTE) code = 8081) PAD MAKING MACHINE OPERATOR: (test Ed code = 8101) PATTI Mathew(ASCP)IAC QC TECHNOLOGIST: (test PATTI Perdomo(ASCP) code = 8111) LOCATION: (test code = (NOTE) 96836) CPT: (test code = 8140) (NOTE) HPV HIGH RISK WITH GENOTYPE, [id number] 00:00:00 Test Item Value Reference Range Interpretation Comments HPV HIGH RISK INTERP (test code = NEGATIVE 44631) HPV 16 (test code = 89480) NEGATIVE HPV 18 (test code = 68880) NEGATIVE HPV, HR, OTHER GENOTYPES (test code NEGATIVE = 24696) HEMOGLOBIN [id number] 00:00:00 Test Item Value Reference Range Interpretation Comments HEMOGLOBIN A1c (test code = 70166) 12.1 % MICROALBUMIN/CREATININE, RANDOM AND [id number] 00:00:00 Test Item Value Reference Range Interpretation Comments CREATININE, URINE, CONC. (test 53.6 MG/DL code = 2072) ALBUMIN, URINE, RANDOM (test code 5.5 MG/DL = 04995) CALC ALBUMIN/CREAT, RND (test code 103 MG/G = 02497) MICROALBUMIN/CREATININE, RANDOM AND [id number] 00:00:00 Test Item Value Reference Range Interpretation Comments CREATININE, URINE, CONC. (test 53.6 MG/DL code = 2072) ALBUMIN, URINE, RANDOM (test code 5.5 MG/DL = 18105) CALC ALBUMIN/CREAT, RND (test code 103 MG/G = 51117) HEMOGLOBIN [id number] 00:00:00 Test Item Value Reference Range Interpretation Comments HEMOGLOBIN A1c (test code = 16676) 12.1 % HPV HIGH RISK WITH GENOTYPE, [id number] 00:00:00 Test Item Value Reference Range Interpretation Comments HPV HIGH RISK INTERP (test code = NEGATIVE 50711) HPV 16 (test code = 95480) NEGATIVE HPV 18 (test code = 41861) NEGATIVE HPV, HR, OTHER GENOTYPES (test code NEGATIVE = 67748) HEMOGLOBIN [id number] 00:00:00 Test Item Value Reference Range Interpretation Comments HEMOGLOBIN A1c (test code = 13321) 12.1 % LIVER (HEPATIC) FUNCTION [id number] 00:00:00 Test Item Value Reference Range Interpretation Comments PROTEIN, TOTAL (test code = 2229) 7.4 G/DL ALBUMIN (test code = 2201) 4.7 G/DL BILIRUBIN, TOTAL (test code = 2207) 0.6 MG/DL BILIRUBIN, DIRECT (test code = 0.2 MG/DL 2021) ALKALINE PHOSPHATASE (test code = 166 U/L 2203) AST (test code = 2218) 23 U/L ALT (test code = 2219) 35 U/L LIPID [id number] 00:00:00 Test Item Value Reference Range Interpretation Comments CHOLESTEROL (test code = 2210) 126 MG/DL TRIGLYCERIDES (test code = 2232) 347 MG/DL HDL CHOLESTEROL (test code = 2220) 33 MG/DL CALC LDL CHOL (test code = 2237) 24 MG/DL RISK RATIO LDL/HDL (test code = 0.72 RATIO 2238) LIPID [id number] 00:00:00 Test Item Value Reference Range Interpretation Comments CHOLESTEROL (test code = 2210) 126 MG/DL TRIGLYCERIDES (test code = 2232) 347 MG/DL HDL CHOLESTEROL (test code = 2220) 33 MG/DL CALC LDL CHOL (test code = 2237) 24 MG/DL RISK RATIO LDL/HDL (test code = 0.72 RATIO 2238) LIVER (HEPATIC) FUNCTION [id number] 00:00:00 Test Item Value Reference Range Interpretation Comments PROTEIN, TOTAL (test code = 2229) 7.4 G/DL ALBUMIN (test code = 2201) 4.7 G/DL BILIRUBIN, TOTAL (test code = 2207) 0.6 MG/DL BILIRUBIN, DIRECT (test code = 0.2 MG/DL 2021) ALKALINE PHOSPHATASE (test code = 166 U/L 2203) AST (test code = 2218) 23 U/L ALT (test code = 2219) 35 U/L [id number] 00:00:00 Test Item Value Reference Range Interpretation Comments LIPASE (test code = 2058) 22 U/L [id number] 00:00:00 Test Item Value Reference Range Interpretation Comments LIPASE (test code = 2057) 22 U/L [id number] 00:00:00 Test Item Value Reference Range Interpretation Comments LIPASE (test code = 2057) 22 U/L LIVER (HEPATIC) FUNCTION [id number] 00:00:00 Test Item Value Reference Range Interpretation Comments PROTEIN, TOTAL (test code = 2229) 7.7 G/DL ALBUMIN (test code = 2201) 4.6 G/DL BILIRUBIN, TOTAL (test code = 2207) 0.4 MG/DL BILIRUBIN, DIRECT (test code = 0.2 MG/DL 2021) ALKALINE PHOSPHATASE (test code = 207 U/L 4) AST (test code = 2218) 45 U/L ALT (test code = 2219) 50 U/L LIPID [id number] 00:00:00 Test Item Value Reference Range Interpretation Comments CHOLESTEROL (test code = 2210) 268 MG/DL TRIGLYCERIDES (test code = 2232) 1710 MG/DL HDL CHOLESTEROL (test code = 26 MG/DL 2220) CALC LDL CHOL (test code = 2237) NOTE MG/DL RISK RATIO LDL/HDL (test code = (NOTE) RATIO 2238) LIPID [id number] 00:00:00 Test Item Value Reference Range Interpretation Comments CHOLESTEROL (test code = 2210) 268 MG/DL TRIGLYCERIDES (test code = 2232) 1710 MG/DL HDL CHOLESTEROL (test code = 26 MG/DL 2220) CALC LDL CHOL (test code = 2237) NOTE MG/DL RISK RATIO LDL/HDL (test code = (NOTE) RATIO 2238) LIVER (HEPATIC) FUNCTION [id number] 00:00:00 Test Item Value Reference Range Interpretation Comments PROTEIN, TOTAL (test code = 2229) 7.7 G/DL ALBUMIN (test code = 2201) 4.6 G/DL BILIRUBIN, TOTAL (test code = 220) 0.4 MG/DL BILIRUBIN, DIRECT (test code = 0.2 MG/DL 2021) ALKALINE PHOSPHATASE (test code = 207 U/L 2203) AST (test code = 2218) 45 U/L ALT (test code = 2219) 50 U/L VAGINAL PATHOGENS DNA [id number] 00:00:00 Test Item Value Reference Range Interpretation Comments YUMIKO SPECIES (test code = ) POSITIVE G. VAGINALIS (test code = 34830) NEGATIVE T. VAGINALIS (test code = 63191) NEGATIVE VAGINAL PATHOGENS DNA [id number] 00:00:00 Test Item Value Reference Range Interpretation Comments YUMIKO SPECIES (test code = 09088) POSITIVE G. VAGINALIS (test code = 51193) NEGATIVE T. VAGINALIS (test code = 52385) NEGATIVE HEMOGLOBIN [id number] 00:00:00 Test Item Value Reference Range Interpretation Comments HEMOGLOBIN A1c (test code = 59489) 10.8 % COMPREHENSIVE METABOLIC [id number] 00:00:00 Test Item Value Reference Range Interpretation Comments GLUCOSE (test code = 2217) 478 MG/DL BUN (test code = 2208) 9 MG/DL CREATININE (test code = 2214) 0.70 MG/DL eGFR AMER. (test code 108 ML/MIN/1.73 = 08254) eGFR NON- AMER. (test 94 ML/MIN/1.73 code = 80354) CALC BUN/CREAT (test code = 13 RATIO 2235) SODIUM (test code = 2231) 135 MEQ/L POTASSIUM (test code = 2228) 4.3 MEQ/L CHLORIDE (test code = 2215) 95 MEQ/L CARBON DIOXIDE (test code = 23 MEQ/L 2206) CALCIUM (test code = 2209) 9.5 MG/DL PROTEIN, TOTAL (test code = 7.6 G/DL 222) ALBUMIN (test code = 2201) 4.5 G/DL CALC GLOBULIN (test code = 3.1 G/DL 2240) CALC A/G RATIO (test code = 1.5 RATIO 2234) BILIRUBIN, TOTAL (test code = 0.6 MG/DL 2206) ALKALINE PHOSPHATASE (test 223 U/L code = 220) AST (test code = 2218) 60 U/L ALT (test code = 2219) 58 U/L COMPREHENSIVE METABOLIC [id number] 00:00:00 Test Item Value Reference Range Interpretation Comments GLUCOSE (test code = 2217) 478 MG/DL BUN (test code = 2208) 9 MG/DL CREATININE (test code = 2214) 0.70 MG/DL eGFR AMER. (test code 108 ML/MIN/1.73 = 36328) eGFR NON- AMER. (test 94 ML/MIN/1.73 code = 54902) CALC BUN/CREAT (test code = 13 RATIO 2235) SODIUM (test code = 2231) 135 MEQ/L POTASSIUM (test code = 2228) 4.3 MEQ/L CHLORIDE (test code = 2215) 95 MEQ/L CARBON DIOXIDE (test code = 23 MEQ/L 2206) CALCIUM (test code = 2209) 9.5 MG/DL PROTEIN, TOTAL (test code = 7.6 G/DL 2228) ALBUMIN (test code = 2201) 4.5 G/DL CALC GLOBULIN (test code = 3.1 G/DL 2240) CALC A/G RATIO (test code = 1.5 RATIO 2234) BILIRUBIN, TOTAL (test code = 0.6 MG/DL 2206) ALKALINE PHOSPHATASE (test 223 U/L code = 2204) AST (test code = 2218) 60 U/L ALT (test code = 2219) 58 U/L HEMOGLOBIN [id number] 00:00:00 Test Item Value Reference Range Interpretation Comments HEMOGLOBIN A1c (test code = 44625) 10.8 % HEMOGLOBIN [id number] 00:00:00 Test Item Value Reference Range Interpretation Comments HEMOGLOBIN A1c (test code = 96766) 10.8 %
[2022-04-17 19:23] LABS: Urine Blood Trace-intact (Negative); Urine Glucose Negative (Negative); Urine Protein Negative (Negative)
[2022-04-17 19:36] LABS: Urine Bacteria None Seen /HPF (<20); Urine Crystals Unidentified Few /HPF (None Seen); Urine RBC <5 /HPF (None Seen)
[2022-04-17 19:59] LABS: SARS-COV-2 RT PCR NEGATIVE (NEGATIVE)
--- NOTE | 2022-04-17 20:08 | RAD REPORT ---
EXAM DESCRIPTION: RAD - Chest Pa And Lat (2 Views) - 04/17/2022 8:01 pm CLINICAL HISTORY: COUGH Chest pain. COMPARISON: No comparisons FINDINGS: Interstitial markings are mildly prominent. This could indicate mild viral bronchitis. The heart is normal in size. No displaced fractures.
--- NOTE | 2022-04-17 20:11 | ER ---
Nurse's Notes [facility] Name: Karen Cortes Age: 66 yrs Sex: Female : 1955 Arrival Date: 04/17/2022 Time: 18:34 Bed 15 Private MD: Diagnosis: Acute bronchitis, unspecified Presentation: 04/17 18:43 Chief complaint: Patient states: back pain, headache, chills, cough, neck pain, X 2 iw days. Coronavirus screen: Client presents with at least one sign or symptom that may indicate coronavirus-19. Ebola Screen: Patient negative for fever greater than or equal to 101.5 degrees Fahrenheit, and additional compatible Ebola Virus Disease symptoms Patient denies exposure to infectious person. Patient denies travel to an Ebola-affected area in the 21 days before illness onset. No symptoms or risks identified at this time. Initial Sepsis Screen: Does the patient meet any 2 criteria? No. Patient's initial sepsis screen is negative. Does the patient have a suspected source of infection? No. Patient's initial sepsis screen is negative. Risk Assessment: Do you want to hurt yourself or someone else? Patient reports no desire to harm self or others. Onset of symptoms was April 15, 2022. 18:43 Method Of Arrival: Ambulatory iw 18:43 Acuity: KATE 4 iw Historical: - Allergies: 18:44 No Known Allergies; iw - PMHx: 18:44 Diabetes mellitus; Hypertensive disorder; iw - PSHx: 18:44 None; iw - Immunization history:: Adult Immunizations up to date. - Social history:: Smoking status: . Screenin:24 [facility] ED Fall Risk Assessment (Adult) History of falling in the last 3 months, lg3 including since admission No falls in past 3 months (0 pts). Abuse screen: Denies threats or abuse. Denies injuries from another. Nutritional screening: No deficits noted. Tuberculosis screening: No symptoms or risk factors identified. Assessment: 19:24 General: Appears in no apparent distress. comfortable, Behavior is calm, cooperative. lg3 Pain: Complains of pain in head and back. Neuro: No deficits noted. Hancock Agitation-Sedation Scale (RASS): 0 - Alert and Calm Level of Consciousness is awake, alert, obeys commands, Oriented to person, place, time, situation. Cardiovascular: No deficits noted. Denies chest pain, Capillary refill < 3 seconds Clubbing of nail beds is absent JVD is absent Patient's skin is warm and dry. Respiratory: Reports cough that is pain with cough. GI: No deficits noted. Abdomen is round non-distended, Bowel sounds present X 4 quads. Abd is soft and non tender. : No deficits noted. No signs and/or symptoms were reported regarding the genitourinary system. EENT: No deficits noted. No signs and/or symptoms were reported regarding the EENT system. Derm: No deficits noted. No signs and/or symptoms reported regarding the dermatologic system. Skin is intact, is healthy with good turgor, Skin is dry, Skin is pink, warm \T\ dry. Musculoskeletal: Circulation, motion, and sensation intact. Capillary refill < 3 seconds, Range of motion: intact in all extremities. 20:38 Reassessment: Patient appears in no apparent distress at this time. No changes from lg3 previously documented assessment. Patient and/or family updated on plan of care and expected duration. Pain level reassessed. Patient is alert, oriented x 3, equal unlabored respirations, skin warm/dry/pink. Vital Signs: 18:43 BP 128 / 80; Pulse 92; Resp 18; Temp 99.0; Pulse Ox 98% on R/A; Weight 70.31 kg; Height iw 5 ft. 8 in. (172.72 cm); 20:38 BP 122 / 84; Pulse 88; Resp 17; Temp 99.4(O); Pulse Ox 99% on R/A; lg3 18:43 Body Mass Index 23.57 (70.31 kg, 172.72 cm) iw ED Course: 18:34 Patient arrived in ED. mr 18:44 Triage completed. iw 18:45 Arm band placed on. iw 18:46 Maura Licona, RN is Primary Nurse. eh3 18:48 Laura Mariscal FNP-C [facility]. snw 18:48 Edmar Aaron MD is Attending Physician. snw 19:16 Strep Sent. rv1 19:16 COVID-19/FLU A+B Sent. rv1 19:24 Patient has correct armband on for positive identification. Placed in gown. Bed in low lg3 position. Call light in reach. Side rails up X 1. Client placed on continuous cardiac and pulse oximetry monitoring. NIBP monitoring applied. Door closed. Noise minimized. Warm blanket given. Family accompanied patient. 19:24 Urine Culture Sent. ha1 19:24 Urine Microscopic Only Sent. ha1 20:03 Chest Pa And Lat (2 Views) XRAY In Process Unspecified. EDMS 20:40 No provider procedures requiring assistance completed. Patient did not have IV access lg3 during this emergency room visit. Administered Medications: 20:37 Drug: Decadron (dexamethasone) 10 mg Route: IM; Site: right gluteus; lg3 20:38 Follow up: Response: No adverse reaction lg3 20:37 Drug: Tussionex Pennkinetic ER (chlorpheniramine-hydrocodone) Suspension 5 ml Route: PO;lg3 20:38 Follow up: Response: No adverse reaction lg3 Medication: 20:40 VIS not applicable for this client. lg3 Outcome: 20:11 Discharge ordered by . snw 20:40 Discharged to home ambulatory, with family. lg3 20:40 Condition: stable 20:40 Discharge instructions given to patient, family, Instructed on discharge instructions, follow up and referral plans. medication usage, Demonstrated understanding of instructions, follow-up care, medications, Prescriptions given X 3. 20:40 Patient left the ED. lg3 Signatures: Dispatcher [employer] Laura Mariscal, [employer] OPEN[employer] INSPECTOR-Zay FarmerPhoebe Prachi Callahan, RN Jess Carpio RN RN lg3 Maura Licona RN RN 3 Dee Dee Verdin RN RN [facility] Lindsey Armas [facility]
--- NOTE | 2022-04-17 20:12 | EDPHYS ---
Physician Documentation [facility] Name: Karen Cortes Age: 66 yrs Sex: Female : 1955 Arrival Date: 04/17/2022 Time: 18:34 Bed 15 Private MD: ED Physician Edmar Aaron HPI: 04/17 19:55 This 66 yrs old Female presents to ER via Ambulatory with complaints of Flu snw Symptoms. 19:55 Onset: The symptoms/episode began/occurred acutely, 1 day(s) ago, and became snw persistent. Associated signs and symptoms: Pertinent positives: cough, headache, sore throat. The patient has not experienced similar symptoms in the past. It is unknown whether or not the patient has recently seen a physician. Historical: - Allergies: 18:44 No Known Allergies; iw - PMHx: 18:44 Diabetes mellitus; Hypertensive disorder; iw - PSHx: 18:44 None; iw - Immunization history:: Adult Immunizations up to date. - Social history:: Smoking status: . ROS: 19:56 Eyes: Negative for injury, pain, redness, and discharge. snw 19:56 Neck: Negative for injury, pain, and swelling, Cardiovascular: Negative for chest pain, palpitations, and edema. 19:56 Abdomen/GI: Negative for abdominal pain, nausea, vomiting, diarrhea, and constipation, Back: Negative for injury and pain, : Negative for injury, bleeding, discharge, and swelling, MS/Extremity: Negative for injury and deformity, Skin: Negative for injury, rash, and discoloration, Neuro: Negative for headache, weakness, numbness, tingling, and seizure. 19:56 Constitutional: Positive for body aches, fatigue, malaise, poor PO intake. 19:56 ENT: Positive for sore throat. 19:56 Respiratory: Positive for cough. Exam: 19:55 Head/Face: Normocephalic, atraumatic. Eyes: Pupils equal round and reactive to light, snw extra-ocular motions intact. Lids and lashes normal. Conjunctiva and sclera are non-icteric and not injected. Cornea within normal limits. Periorbital areas with no swelling, redness, or edema. 19:55 ENT: Nares patent. No nasal discharge, no septal abnormalities noted. Tympanic membranes are normal and external auditory canals are clear. Oropharynx with no redness, swelling, or masses, exudates, or evidence of obstruction, uvula midline. Mucous membranes moist. Neck: Trachea midline, no thyromegaly or masses palpated, and no cervical lymphadenopathy. Supple, full range of motion without nuchal rigidity, or vertebral point tenderness. No Meningismus. Chest/axilla: Normal chest wall appearance and motion. Nontender with no deformity. No lesions are appreciated. Cardiovascular: Regular rate and rhythm with a normal S1 and S2. No gallops, murmurs, or rubs. Normal PMI, no JVD. No pulse deficits. Respiratory: Lungs have equal breath sounds bilaterally, clear to auscultation and percussion. No rales, rhonchi or wheezes noted. No increased work of breathing, no retractions or nasal flaring. Abdomen/GI: Soft, non-tender, with normal bowel sounds. No distension or tympany. No guarding or rebound. No evidence of tenderness throughout. Back: No spinal tenderness. No costovertebral tenderness. Full range of motion. Skin: Warm, dry with normal turgor. Normal color with no rashes, no lesions, and no evidence of cellulitis. MS/ Extremity: Pulses equal, no cyanosis. Neurovascular intact. Full, normal range of motion. Psych: Awake, alert, with orientation to person, place and time. Behavior, mood, and affect are within normal limits. 19:55 Constitutional: The patient appears alert, awake, listless, uncomfortable. 19:55 Neuro: Orientation: is normal, Abnormal movements: there are no abnormal movements. Vital Signs: 18:43 BP 128 / 80; Pulse 92; Resp 18; Temp 99.0; Pulse Ox 98% on R/A; Weight 70.31 kg; Height iw 5 ft. 8 in. (172.72 cm); 20:38 BP 122 / 84; Pulse 88; Resp 17; Temp 99.4(O); Pulse Ox 99% on R/A; lg3 18:43 Body Mass Index 23.57 (70.31 kg, 172.72 cm) iw MDM: 18:59 Patient medically screened. snw 20:09 Differential diagnosis: viral Infection, bacterial infection, URI, bronchitis, snw pneumonia. Data reviewed: vital signs, nurses notes, lab test result(s), radiologic studies. I considered the following discharge prescriptions or medication management in the emergency department Medications were administered in the Emergency Department. See MAR. Historians other than the Patient: Daughter/Son: Son. Counseling: I had a detailed discussion with the patient and/or guardian regarding: the historical points, exam findings, and any diagnostic results supporting the discharge/admit diagnosis, lab results, radiology results, the need for outpatient follow up, to return to the emergency department if symptoms worsen or persist or if there are any questions or concerns that arise at home. Special discussion: Based on the history and exam findings, there is no indication for further emergent testing or inpatient evaluation. I discussed with the patient/guardian the need to see the primary care provider for further evaluation of the symptoms. 04/17 18:54 Order name: Urine Culture snw 04/17 18:54 Order name: Urine Microscopic Only; Complete Time: 20:03 snw 04/17 18:54 Order name: COVID-19/FLU A+B; Complete Time: 20:03 snw 04/17 18:54 Order name: Strep; Complete Time: 19:33 snw 04/17 19:23 Order name: Urine Dipstick-Ancillary; Complete Time: 19:32 EDMS 04/17 19:35 Order name: Throat Culture EDMS 04/17 18:54 Order name: Urine Dipstick-Ancillary (obtain specimen); Complete Time: 19:24 snw 04/17 19:33 Order name: Chest Pa And Lat (2 Views) XRAY; Complete Time: 20:09 snw Administered Medications: 20:37 Drug: Decadron (dexamethasone) 10 mg Route: IM; Site: right gluteus; lg3 20:38 Follow up: Response: No adverse reaction lg3 20:37 Drug: Tussionex Pennkinetic ER (chlorpheniramine-hydrocodone) Suspension 5 ml Route: PO;lg3 20:38 Follow up: Response: No adverse reaction lg3 Disposition Summary: 04/17/22 20:11 Discharge Ordered Location: Home snw Condition: Stable snw Diagnosis - Acute bronchitis, unspecified snw Followup: snw - With: Emergency Department - When: As needed - Reason: Trouble breathing, Worsening of condition Followup: snw - With: Private Physician - When: 5 - 6 days - Reason: Recheck today's complaints, Continuance of care, Re-evaluation by your physician Discharge Instructions: - Discharge Summary Sheet snw - Acute Bronchitis, Adult snw - Viral Respiratory Infection snw - Rehydration, Adult snw Forms: - Medication Reconciliation Form snw - Thank You Letter snw - Antibiotic Education snw - Prescription Opioid Use snw Prescriptions: - Zyrtec 10 mg Oral Tablet - take 1 tablet by ORAL route once daily As needed; 20 tablet; Refills: 0, snw Product Selection Permitted - Tessalon Perles 100 mg Oral Capsule - take 1 capsule by ORAL route every 8 hours As needed; 15 capsule; Refills: 0, snw Product Selection Permitted - Pepcid 20 mg Oral Tablet - take 1 tablet by ORAL route once daily; 20 tablet; Refills: 0, Product snw Selection Permitted Signatures: Dispatcher [employer] Laura Vann, ADALBERTO-C AZURE PRINCIPAL SOLUTION SPECIALIST-Csnw Prachi Callahan, RN RN iw Jess Valdez RN RN lg3
[2022-04-17] MEDS ORDERED: HYDROCODONE/CHLORPHEN 5 ML/OSYR ONE (20:31)
[2022-04-17] MEDS ORDERED: dexAMETHasone 10 MG/ML VIAL ONE (20:31)
[2022-04-17 20:53] VITALS: BP 122/84; TEMP 99.4; O2SAT 99
== END 2022-04-17 20:40 | disposition home or self-care (01) ==
LOC: ER 18:30
DX: J20.9 Acute bronchitis, unspecified (principal); E11.9 Type 2 diabetes mellitus without complications; I10 Essential (primary) hypertension; Z20.822 Contact with and (suspected) exposure to COVID-19
CPT/HCPCS: 87070; 87088; 87086; 87081; 0240U; 71046; J1100; 81003; 81015